=== PATIENT | female | born 1955 | race Caucasian/White ===

== ENCOUNTER 2019-04-16 10:03 | Emergency (ER) | payer MEDICARE ==
--- NOTE | 2019-04-16 10:45 | RAD ---
Exam: Right knee 4 views: HISTORY: Pain Very heterogeneous sclerotic and decreased bone density changes within the distal femur and proximal tibia, nonspecific. This could possibly be related to some multifocal areas of bone infarcts, versus very heterogeneous periarticular bony demineralization.. No acute fracture or dislocation. IMPRESSION: Heterogeneous density of the distal femur and proximal tibia, nonspecific as above. No acute fracture or dislocation.
--- NOTE | 2019-04-16 10:47 | RAD ---
Exam: Right foot 3 views: HISTORY: Redness and swelling around great toenail. FINDINGS: Very severe patchy sclerotic and decreased bone density changes throughout the foot and ankle, nonspe cific. Degenerative changes. No acute fracture or dislocation. No evidence for bony destructive changes to suggest osteomyelitis. IMPRESSION: Very severe multifocal areas of sclerosis as well as hypodensity involving the foot and ankle. No fra cture or dislocation. No focal bony destructive changes of the great toe.
[2019-04-16 11:04] LABS: #Basophils 0.1 thou/uL (0.0-0.2); #Eosinphils 0.4 thou/uL (0.0-0.7); #Lymphocytes 1.7 thou/uL (1.20-3.40); #Monocytes 0.4 thou/uL (0.11-0.59); #Neutrophils 4.7 thou/uL (1.40-6.50); %Eosinophils 5.2 % (0.0-10.0); %Lymphocytes 23.5 % (21.0-51.0); %Monocytes 5.2 % (0.0-10.0); %Neutrophils 65.2 % (42.0-75.0); Hemoglobin 12.4 g/dL (12.0-16.0); Mean Corpuscular HGB CONC 34.3 g/dL (32.0-36.0); Mean Corpuscular Hemoglobin 31.9 pg (27.0-31.0); Mean Platelet Volume 7.9 fL (7.4-10.4); Platelet Count 253 thou/uL (130-400); RBC Distribution Width 13.5 % (11.5-14.5); Red Blood Cell (RBC) Count 3.89 mill/uL (4.20-5.40); White Blood Cell (WBC) Count 7.1 thou/uL (4.8-10.8)
[2019-04-16 11:14] LABS: Lactic Acid 1.2 mmol/L (0.5-2.2)
[2019-04-16 11:17] LABS: Anion Gap 13 mmol/L (10-20); BUN (Urea Nitrogen) 15 mg/dL (9.8-20.1); Calc. Creatinine Clearance 0 mL/min (70-130); Calcium 9.6 mg/dL (7.8-10.44); Carbon Dioxide 25 mmol/L (23-31); Chloride 101 mmol/L (98-107); Estimated GFR-MDRD 70; Glucose 144 mg/dL (80-115); Potassium 3.6 mmol/L (3.5-5.1); Sodium 135 mmol/L (136-145)
[2019-04-16] MEDS ORDERED: HYDROcodone/Acetaminophen 10/325 mg Tablet ONE (12:00)
== END 2019-04-16 12:13 | disposition home or self-care (01) ==
LOC: ERS 10:03
DX: L03.031 Cellulitis of right toe (principal); M25.561 Pain in right knee; E11.40 Type 2 diabetes mellitus with diabetic neuropathy, unspecified; I10 Essential (primary) hypertension; E78.00 Pure hypercholesterolemia, unspecified; F17.210 Nicotine dependence, cigarettes, uncomplicated; Z79.899 Other long term (current) drug therapy; Z79.84 Long term (current) use of oral hypoglycemic drugs
CPT/HCPCS: 36415; 80048; 83605; 85025